=== PATIENT | male | born 1995 | race Two or more races ===

== ENCOUNTER 2024-11-15 10:34 | Emergency (ER) | payer MEDICAID, SELFPAY ==
[2024-11-15 10:54] VITALS: BP 126/46; PULSE 94; RESP 20; TEMP 37; O2SAT 98; BMI 17.8
--- NOTE | 2024-11-15 10:58 | ED.MALEGU ---
HPI - Male Genitourinary General Chief complaint: Urogenital-Male Stated complaint: Vomiting, Dizziness Related Data Allergies Allergy/AdvReac Type Severity Reaction Status Date / Time Penicillins Allergy Unknown Verified 11/16/24 19:38 [facility] Social History Social History Advance Directives: No Advance Directives Information Provided: No Do you have a plan to hurt others: No Plan Physical Exam Vital Signs: Vital Signs: Last Vital Signs Temp 98.6 F 11/15/24 10:54 Pulse 94 11/15/24 10:54 Resp 20 11/15/24 10:54 BP 126/46 L 11/15/24 10:54 Pulse Ox 98 11/15/24 10:54 O2 Del Method Room Air 11/15/24 10:54 BMI result Body Mass Index 17.8 Course Course Course Narrative: This is an RME: Additional HPI, ROS, PE not included below will be deferred to primary provider. RME assessment and note performed by: Shania Blackwell PA-C This is a [id number]-ush-male who presents to the ER with complaints of dysuria, urinary urgency and urinary frequency. Also endorses nausea and vomiting. Vital signs stable, patient well-appearing. Abdomen is soft and nontender. He states that he feels as though he has a UTI and started on AZO. He is sexually active, he states not concerned for STIs at this time, but agreeable for testing. Plan: Labs, UA, CTNG, further ER eval needed. Reevaluation(s) Reevaluation #1: CT NG positive for gonorrhea. Attempted to contact patient via telephone to notify him of results. No answer, no name on outgoing message. Left generic message to call the ED. Time: 19:00 Medical Decision Making Lab Data 11/15/24 11:07 11/15/24 11:07 Labs: Lab Results 11/15/24 11/15/24 Range/Units 11:07 15:01 WBC 14.3 H (4.8-10.8) X10*3/uL RBC 5.45 (4.60-5.80) X10*6/uL Hgb 16.2 (14.0-18.0) g/dl Hct 47.5 (42.0-52.0) % MCV 87.2 (80.0-98.0) fL MCH 29.7 (27.0-33.0) pg MCHC 34.1 (31.0-36.0) g/dl RDW 13.3 (11.0-16.0) % Plt Count 214 (160-400) X10*3/uL MPV 9.1 L (9.4-12.4) fL Immature Gran % (Auto) Cancelled Neut % (Auto) Cancelled Lymph % (Auto) Cancelled Hendricks % (Auto) Cancelled Eos % (Auto) Cancelled Baso % (Auto) Cancelled Lymph # (Auto) Cancelled Hendricks # (Auto) Cancelled Eos # (Auto) Cancelled Baso # (Auto) Cancelled Abs Immat Gran (auto) Cancelled Absolute Neuts (auto) Cancelled Absolute Nucleated RBC 0.000 (0.0-0.012) X10*3/uL Nucleated RBC % (auto) 0.0 (0.0-0.2) /100WBC Neutrophils % (Manual) 86 H (45-73) % Band Neutrophils % 7 H (3-5) % Lymphocytes % (Manual) 3 L (20-40) % Monocytes % (Manual) 3 (2-11) % Eosinophils % (Manual) 1 (0-4) % Abs Neuts (Manual) 13.3 H (2.0-8.3) X10*3/uL Lymphocytes # (Manual) 0.4 L (1.2-4.9) X10*3/uL Monocytes # (Manual) 0.4 (0.1-1.2) X10*3/uL Eosinophils # (Manual) 0.1 (0.0-0.4) X10*3/uL Platelet Estimate NORMAL (NORMAL) Plt Morphology Comment NORMAL RBC Morphology NORMAL Smear Tech's Comments MANUAL DIFF Sodium 138 (135-145) mmol/L Potassium 4.1 (3.3-5.1) mmol/L Chloride 106 (96-108) mmol/L Carbon Dioxide 23 (22-29) mmol/L Anion Gap 13 (12-20) BUN 16 (9-16) mg/dL Creatinine 0.91 (0.5-1.4) mg/dL Estim Creat Clear Calc 88.0 Estimated GFR > 60 Random Glucose 115 (60-115) mg/dL Calcium 9.2 (8.4-10.2) mg/dL Total Bilirubin 1.2 H (0.0-1.0) mg/dL AST 21 (5-37) U/L ALT 15 (0-40) U/L Alkaline Phosphatase 62 (39-117) U/L Total Protein 7.5 (6.5-8.0) g/dL Albumin 4.3 (3.5-5.0) g/dL Urine Color Yellow Urine Appearance Cloudy Urine pH 6.0 (5.0-9.0) Ur Specific [place] >= 1.030 H (1.005-1.025) Urine Protein Negative (Neg-Trace) mg/dL Urine Glucose (UA) Negative (Negative) mg/dL Urine Ketones Negative (Negative) mg/dL Urine Blood Small (1+) H (Negative) Urine Nitrite Negative (Negative) Ur Leukocyte Esterase Moderate (2+) H (Negative) Urine RBC 0-2 (0-2) /HPF Urine WBC 21-50 (0-5) /HPF Ur Squamous Epith Cells 0-2 (0-2) /HPF Urine Bacteria 2+ (None Seen) Hyaline Casts 0-2 (0-2) /LPF Chlam trachomat DNA PCR NOT DETECTED (Not Detect.) N.gonorrhoeae DNA (PCR) DETECTED A (Not Detect.) Discharge Plan Discharge Clinical Impression: Urethritis Patient Disposition: Left W/O Completing Treatment Discharge Date/Time: 11/15/24 18:18
[2024-11-15 11:17] LABS: Hematocrit 47.5 % (42.0-52.0); Hemoglobin 16.2 g/dl (14.0-18.0); Mean Corpuscular HGB Conc 34.1 g/dl (31.0-36.0); Mean Corpuscular Hemoglobin 29.7 pg (27.0-33.0); Mean Corpuscular Volume 87.2 fL (80.0-98.0); Mean Platelet Volume 9.1 fL (9.4-12.4); Platelet Count 214 X10*3/uL (160-400); Red Blood Count 5.45 X10*6/uL (4.60-5.80); Red Cell Distribution Width 13.3 % (11.0-16.0); White Blood Count 14.3 X10*3/uL (4.8-10.8)
[2024-11-15 11:27] LABS: Alanine Aminotransferase 15 U/L (0-40); Albumin Level 4.3 g/dL (3.5-5.0); Alkaline Phosphatase 62 U/L (39-117); Anion Gap 13 (12-20); Aspartate Amino Transferase 21 U/L (5-37); Bilirubin Total 1.2 mg/dL (0.0-1.0); Blood Urea Nitrogen 16 mg/dL (9-16); Calcium 9.2 mg/dL (8.4-10.2); Carbon Dioxide 23 mmol/L (22-29); Chloride 106 mmol/L (96-108); Estimated Glomerular Filt Rate > 60; Glucose Random 115 mg/dL (60-115); Potassium 4.1 mmol/L (3.3-5.1); Sodium 138 mmol/L (135-145); Total Protein 7.5 g/dL (6.5-8.0)
[2024-11-15 12:05] LABS: SLIDE REVIEW MANUAL DIFF
[2024-11-15 12:08] LABS: Band Neutrophils Percent 7 % (3-5); Eosinophils Absolute Manual 0.1 X10*3/uL (0.0-0.4); Eosinophils Percent Manual 1 % (0-4); Lymphocytes Absolute Manual 0.4 X10*3/uL (1.2-4.9); Lymphocytes Percent Manual 3 % (20-40); Monocytes Absolute Manual 0.4 X10*3/uL (0.1-1.2); Monocytes Percent Manual 3 % (2-11); Neutrophils Absolute Manual 13.3 X10*3/uL (2.0-8.3); Neutrophils Percent Manual 86 % (45-73)
[2024-11-15 12:09] LABS: Platelet Estimate NORMAL (NORMAL); Platelet Morphology Comment NORMAL; RBC Morphology NORMAL
[2024-11-15 15:11] LABS: Appearance Urine Cloudy; Color Urine Yellow; Glucose Urine UA Negative (Negative); Leukocyte Esterase Urine Moderate (2+) (Negative); Nitrite Urine Negative (Negative); Specific Gravity - Urine >= 1.030 (1.005-1.025); UMIC TRIGGER UACC YES; Urine Blood Small (1+) (Negative); Urine Ketones Negative (Negative); Urine Protein Negative (Neg-Trace)
[2024-11-15 15:16] LABS: Bacteria Urine 2+ (None Seen); Hyaline Casts Urine 0-2 /LPF (0-2); RBC Urine 0-2 /HPF (0-2); Squamous Epithelial Cell Urine 0-2 /HPF (0-2); UACC Culture Trigger YES; WBC Urine 21-50 /HPF (0-5)
[2024-11-15 16:46] LABS: CT PCR NOT DETECTED (Not Detect.); NG PCR DETECTED (Not Detect.)
--- OUTSIDE RECORDS SUMMARY | 2024-11-15 18:14 | XMS_ITS | Clinical Summary ---
Author Organization [employer] [facility] ity Address [address] [place] [address] Care Team Providers Care Cloud Administrator Name Role Phone Unavailable Primary Care Provider Unavailabl e Social History Tobacco Use Types Packs/Day Years Used Date Smoking Tobacco: Never Assessed Sex and Gender Information Value Date Recorded Sex Assigned at Not on file Legal Sex Male 2:32 PM EDT Gender Identity Not on file Sexual Orientation Not on file Plan of Treatment Health Maintenance Due Date Last Done Comments DTaP,Tdap,and Td Vaccines (1 - Tdap) 2015 Hepatitis B Vaccines (1 of 3 - 19+ 3-dose series) 2015 COVID-19 Vaccine (2023-2 5 season) 2024 Influenza Vaccine (Season Ended) 2025 HIB Vaccines Aged Out No longer eligi ble based on patient's age to complete this topic HPV Vaccines Aged Out No longer eligi ble based on patient's age to complete this topic Hepatitis A Vaccines Aged Out No long er eligible based on patient's age to complete this topic IPV Vaccines Aged Out No longer eligi ble based on patient's age to complete this topic MMR Vaccines Aged Out No longer eligi ble based on patient's age to complete this topic Meningococcal ACWY Vaccine Aged Out N o longer eligible based on patient's age to complete this topic Meningococcal B Vacine Aged Out No lo nger eligible based on patient's age to complete this topic Pneumococcal Vaccine: Pediat rics (0 to 5 Years) and At-Risk Patients (6 to 64 Years) Aged Out No longer eligible b ased on patient's age to complete this topic RSV Immunization Patients Un sonny 20 months Aged Out No longer eligible b ased on patient's age to complete this topic Varicella Vaccines Aged Out No longer eligible based on patient's age to complete this topic
== END 2024-11-15 18:18 | disposition left against medical advice (07) ==
PROVIDERS: Physician Assistant Medical; Emergency Provider Emergency Medicine
DX: N34.2 Other urethritis (principal); R11.2 Nausea with vomiting, unspecified; R42 Dizziness and giddiness; R30.0 Dysuria; R39.15 Urgency of urination; R35.0 Frequency of micturition
CPT/HCPCS: 36415; 80053; 81001; 85007; 85025; 85027; 87086; 87491; 87591; 99282; 99283

== ENCOUNTER 2024-11-16 19:35 | Emergency (ER) | payer MEDICAID, SELFPAY ==
[2024-11-16 19:36] VITALS: BP 112/53; PULSE 79; RESP 16; TEMP 36.7; O2SAT 98; BMI 18.3
--- NOTE | 2024-11-16 19:39 | ED.GENADULT ---
HPI - General Adult General Chief complaint: General Medical Stated complaint: test results Time Seen by Provider: 11/16/24 19:39 Source: patient, RN notes reviewed and old records reviewed Mode of arrival: ambulatory Limitations: no limitations History of Present Illness ED Provider: Claire [facility] narrative: Patient is a 29-year-old male returning to the ED after he was called and notified of positive gonorrhea results. Denies any new symptoms. Denies any new sexual partners. States he has notified all partners of his infection. Patient noted to have a penicillin allergy, states he is unaware of the reaction. complaint: gonorrhea Related Data Allergies Allergy/AdvReac Type Severity Reaction Status Date / Time Penicillins Allergy Unknown Verified 11/16/24 19:38 Review of Systems Review of Systems: as per hpi Yes all other systems are reviewed and are negative Constitutional: Constitutional: Reports as per HPI [facility] Social History Social History Do you have a plan to hurt others: No Plan Physical Exam ED Vital Signs: Vital Signs - 24 hr 11/16/24 19:36 Temperature 98.1 F Pulse Rate 79 Respiratory Rate 16 Blood Pressure 112/53 L Pulse Oximetry 98 Oxygen Delivery Method Room Air BMI result Body Mass Index 18.3 Vital signs have been reviewed and appear to be correct. Blood pressure normal. Heart rate normal. Respiratory rate normal. Temperature normal. Oxygen saturation normal. Const General: cooperative, healthy appearing and no acute distress Orientation/consciousness: oriented to person, oriented to place, oriented to time and patient oriented x3 Limitations: no limitations HENMT Head: Yes normocephalic and Yes atraumatic Ears: external ears normal General nose exam: Normal external nose present Face and sinus: Yes face symmetric Mouth: oropharynx normal and moist mucous membranes Throat: Yes uvula midline Eyes Pupils: Equal, round and reactive pupils present Neck Neck: Yes normal visual inspection and Yes supple Resp Effort & Inspection: normal respiratory effort and able to speak in complete sentences Auscultation: clear to auscultation bilaterally Cardio Rate: regular rate Rhythm: regular rhythm Heart sounds: S1 normal heart sound present and S2 normal heart sound present GI Palpation (GI): Soft to palpation and nontender Auscultation: normoactive bowel sounds General: Yes no CVA tenderness Back/Spine/Pelvis Back: no CVA tenderness Skin General skin exam: elasticity normal and turgor normal Neuro General: oriented to person, oriented to place, oriented to time, patient oriented x3, moves all extremities, no focal motor deficits and CN's II-XI intact bilaterally Cranial nerves: Yes Equal, round and reactive pupils present Cognition (Neuro): normal cognition Extrem General: Yes full ROM, Yes no pedal edema and Yes no calf tenderness Psych Mental Status: mental status grossly normal Affect: normal affect Thought process: Normal thought process present Medications Administered Discontinued Medications Generic Name Dose Route Start Last Admin Trade Name Ingrid PRN Reason Stop Dose Admin Ceftriaxone Sodium 500 mg/ 0 mg 11/16/24 19:39 11/16/24 19:48 Lidocaine HCl 1 ml IM 11/16/24 19:40 1 kit ONCE ONE Administration Medical Decision Making Medical Decision Making [facility] Narrative: Patient is a 29-year-old male returning to the ED after he was called and notified of positive gonorrhea results. On exam patient is awake, A+Ox3, VS WNL, afebrile, normal neurological exam without focal deficits, physical exam findings as above. Given reported symptoms and physical exam findings, initial differential includes but is not limited to known gonorrhea infection. Patient medicated with IM ceftriaxone in the emergency department and observed for 30 minutes without adverse reaction. Feel patient is safe for discharge home at this time. Reiterated with patient that he should notify any sexual partners of positive results and that they need treatment. Advised patient to abstain from intercourse for the next 7 days. Follow up with PCP as needed. Return precautions discussed. Patient verbalized understanding of and agreement with plan. Differential Diagnosis Differential Diagnoses: The differential diagnosis associated with the presentation includes As per [facility] Lab Data [facility] Lab Attestation statement: I reviewed the patient's lab results. lab results from 11/15/2024 reviewed and discussed with patient External Record Review External record reviewed: Inpatient record, Office record and Outpatient record Prescription Management I considered prescription management with: Antibiotic Discharge Plan Discharge Clinical Impression: Gonorrhea Patient Disposition: Home, Self-Care Instructions: Sexually Transmitted Diseases (ED), Gonorrhea (ED) Additional Instructions: You were seen in the emergency department today and treated for gonorrhea which is a sexually transmitted infection. You were treated with a one-time dose of an antibiotic. It is important that you notify any sexual partners of your positive results, because they will need to be treated as well. Do not have intercourse for the next 7 days. Follow up with your primary care provider as needed. Return to the emergency department with any new or concerning symptoms. Print Language: Unable To Collect
[2024-11-16] MEDS: cefTRIAXone sodium 500 MG, Lidocaine HCl 1 % MPF 1 ML IM (19:48)
[2024-11-16 20:19] VITALS: BP 104/53; PULSE 80; RESP 16; TEMP 36.8; O2SAT 97
== END 2024-11-16 20:30 | disposition home or self-care (01) ==
LOC: HO.ED 20:27
PROVIDERS: Emergency Provider Emergency Medicine Emergency Medical Services
DX: A54.9 Gonococcal infection, unspecified (principal)
CPT/HCPCS: 96372; 99282; 99284; J0696; J2003